=== PATIENT | female | born 1940 | race Caucasian/White ===

== ENCOUNTER 2020-07-25 14:52 | Inpatient (IN) ==
[2020-07-25] MEDS ORDERED: DEXTROSE 50% 25 GM/50 ML VIAL IV PRN (18:16)
[2020-07-25] MEDS ORDERED: GLUCAGON 1 MG VIAL IM PRN (18:16)
[2020-07-25] MEDS ORDERED: hydrALAZINE 20 MG/1 ML VIAL IV PRN (18:58)
[2020-07-25 19:02] LABS: Basophils % 0.1 % (0.0-0.8); Hematocrit 34.9 VOL% (35.7-47.0); Hemoglobin 10.9 GM/DL (12.0-16.0); Immature Granulocytes % 0.4 %; Immature Granulocytes Absolute 0.05 #; Lymphocytes # 1.1 10*3/uL (1.4-4.0); Lymphocytes % 8.6 % (21.3-54.2); Mean Corpuscular HGB Conc 31.2 GM/DL (32-36); Mean Corpuscular Volume 79.5 FL (87-102); Mean Platelet Volume 9.6 FL (9.6-12.0); Monocytes % 7.5 % (1.7-12.7); Neutrophils % 83.4 % (38.7-73.9); Platelet Count 445 T/CUMM (130-400); Red Blood Count 4.39 MC/CUMM (3.8-5.5); Red Cell Distribution Width 18.5 % (9.3-17.3)
[2020-07-25 19:25] LABS: Albumin 3.2 G/DL (3.4-5.0); Bilirubin,Total 0.4 MG/DL (0.2-1.0); Calcium 8.1 MG/DL (8.5-10.1); Osmolality,Calculated 283.1 MOS/KG (273-304); Potassium 3.6 MMOL/L (3.5-5.1)
[2020-07-25] MEDS ORDERED: ENOXAPARIN 40 MG/0.4 ML SYRINGE SUBCUT SCH (19:30)
[2020-07-25] MEDS: HEPARIN 5,000 UNIT/1 ML VIAL SUBCUT SCH (23:05)
[2020-07-25] MEDS: SODIUM CHLORIDE 0.9% 1,000 ML IV SCH (23:09)
[2020-07-26 05:26] LABS: Basophils % 0.1 % (0.0-0.8); Eosinophils % 0.1 % (0.00-10.9); Hematocrit 31.5 VOL% (35.7-47.0); Hemoglobin 9.7 GM/DL (12.0-16.0); Immature Granulocytes % 0.4 %; Immature Granulocytes Absolute 0.03 #; Lymphocytes # 1.1 10*3/uL (1.4-4.0); Lymphocytes % 14.9 % (21.3-54.2); Mean Corpuscular HGB Conc 30.8 GM/DL (32-36); Mean Corpuscular Volume 80.2 FL (87-102); Mean Platelet Volume 9.3 FL (9.6-12.0); Monocytes % 9.6 % (1.7-12.7); Neutrophils % 74.9 % (38.7-73.9); Platelet Count 439 T/CUMM (130-400); Red Blood Count 3.93 MC/CUMM (3.8-5.5); Red Cell Distribution Width 18.4 % (9.3-17.3); White Blood Count 7.5 T/CUMM (4-12)
[2020-07-26 05:55] LABS: Calcium 7.8 MG/DL (8.5-10.1); Osmolality,Calculated 291.4 MOS/KG (273-304); Potassium 2.9 MMOL/L (3.5-5.1)
[2020-07-26] MEDS: SODIUM CHLORIDE 0.9% 1,000 ML IV SCH (06:16)
[2020-07-26] MEDS ORDERED: DEXT 5% NACL 0.45% KCL 20 MEQ 20 MEQ/1,000 ML BAG IV SCH (09:30)
[2020-07-26] MEDS ORDERED: MORPHINE 4 MG/1 ML VIAL IV PRN ×2 (11:55)
[2020-07-26] MEDS ORDERED: TUBERCULIN SKIN TEST 0.1 ML SYRINGE INTRADERM ONE (12:30)
[2020-07-26] MEDS: HEPARIN 5,000 UNIT/1 ML VIAL SUBCUT SCH ×2 (14:26→21:13)
[2020-07-26] MEDS: POTASSIUM CHLORIDE RIDER 10 MEQ/100 ML PREMIX IV PRN ×4 (14:27→22:05)
[2020-07-26] MEDS: DEXT 5% NACL 0.45% KCL 20 MEQ 20 MEQ/1,000 ML BAG IV SCH (15:50)
[2020-07-26] MEDS: METOPROLOL TARTRATE 100 MG TABLET PO SCH (21:13)
[2020-07-26] MEDS: MECLIZINE 25 MG TABLET PO SCH (21:13)
[2020-07-27] MEDS: DEXT 5% NACL 0.45% KCL 20 MEQ 20 MEQ/1,000 ML BAG IV SCH ×3 (00:09→18:18)
[2020-07-27 05:15] LABS: Basophils % 0.4 % (0.0-0.8); Eosinophils # 0.1 10*3/uL (0.0-0.87); Eosinophils % 1.4 % (0.00-10.9); Hematocrit 30.8 VOL% (35.7-47.0); Hemoglobin 9.4 GM/DL (12.0-16.0); Immature Granulocytes % 0.2 %; Immature Granulocytes Absolute 0.01 #; Lymphocytes # 1.1 10*3/uL (1.4-4.0); Lymphocytes % 21.6 % (21.3-54.2); Mean Corpuscular HGB Conc 30.5 GM/DL (32-36); Mean Corpuscular Volume 81.5 FL (87-102); Mean Platelet Volume 9.2 FL (9.6-12.0); Monocytes % 11.9 % (1.7-12.7); Neutrophils % 64.5 % (38.7-73.9); Platelet Count 376 T/CUMM (130-400); Red Blood Count 3.78 MC/CUMM (3.8-5.5); Red Cell Distribution Width 18.7 % (9.3-17.3)
[2020-07-27 05:41] LABS: Calcium 8.1 MG/DL (8.5-10.1); Potassium 3.5 MMOL/L (3.5-5.1)
[2020-07-27 05:44] LABS: Calcium 8.2 MG/DL (8.5-10.1); Osmolality,Calculated 293.7 MOS/KG (273-304); Potassium 3.8 MMOL/L (3.5-5.1)
[2020-07-27] MEDS: LEVOTHYROXINE 75 MCG TABLET PO SCH (06:00)
[2020-07-27] MEDS: MECLIZINE 25 MG TABLET PO SCH ×2 (09:45→20:36)
[2020-07-27] MEDS: HEPARIN 5,000 UNIT/1 ML VIAL SUBCUT SCH ×2 (09:45→20:37)
[2020-07-27] MEDS: FLUCONAZOLE 40 MG/ML 35 ML/BOTTLE PO SCH ×2 (09:45→14:07)
[2020-07-27] MEDS: METOPROLOL TARTRATE 100 MG TABLET PO SCH ×2 (10:16→20:37)
[2020-07-27] MEDS: NYSTATIN POWDER 15 GM BOTTLE TOP SCH ×3 (14:08→20:37)
[2020-07-27] MEDS: DOCUSATE SODIUM 100 MG CAPSULE PO SCH ×2 (15:56→20:36)
[2020-07-27] MEDS: LACTULOSE 20 GM/30 ML UDCUP PO SCH ×2 (15:56→20:36)
[2020-07-27] MEDS: METOCLOPRAMIDE 10 MG/2 ML VIAL IV SCH ×2 (18:18→23:30)
[2020-07-27] MEDS: traZODone 50 MG TABLET PO SCH (20:36)
[2020-07-27] MEDS: ONDANSETRON 4 MG/2 ML VIAL IV PRN (20:37)
[2020-07-27] MEDS: TAMSULOSIN 0.4 MG CAPSULE PO SCH (20:37)
[2020-07-27] MEDS: POLYETHYLENE GLYCOL POWDER 17 GM PACK PO SCH (20:37)
[2020-07-28] MEDS: DEXT 5% NACL 0.45% KCL 20 MEQ 20 MEQ/1,000 ML BAG IV SCH ×3 (01:40→18:06)
[2020-07-28 05:00] LABS: Basophils % 0.3 % (0.0-0.8); Eosinophils # 0.1 10*3/uL (0.0-0.87); Eosinophils % 1.1 % (0.00-10.9); Hematocrit 33.8 VOL% (35.7-47.0); Hemoglobin 10.2 GM/DL (12.0-16.0); Immature Granulocytes % 0.4 %; Immature Granulocytes Absolute 0.04 #; Lymphocytes # 2.6 10*3/uL (1.4-4.0); Lymphocytes % 27.3 % (21.3-54.2); Mean Corpuscular HGB Conc 30.2 GM/DL (32-36); Mean Corpuscular Volume 81.8 FL (87-102); Mean Platelet Volume 9.4 FL (9.6-12.0); Monocytes % 9.4 % (1.7-12.7); Neutrophils % 61.5 % (38.7-73.9); Platelet Count 449 T/CUMM (130-400); Red Blood Count 4.13 MC/CUMM (3.8-5.5); Red Cell Distribution Width 19.1 % (9.3-17.3); White Blood Count 9.5 T/CUMM (4-12)
[2020-07-28 05:08] LABS: Calcium 9.1 MG/DL (8.5-10.1); Osmolality,Calculated 285.7 MOS/KG (273-304); Potassium 3.9 MMOL/L (3.5-5.1)
[2020-07-28] MEDS: LEVOTHYROXINE 75 MCG TABLET PO SCH (05:44)
[2020-07-28] MEDS: METOCLOPRAMIDE 10 MG/2 ML VIAL IV SCH ×3 (05:51→18:06)
[2020-07-28] MEDS ORDERED: CHOLECALCIFEROL 1,000 UNIT TABLET PO SCH (09:00)
[2020-07-28] MEDS: LINACLOTIDE 145 MCG CAPSULE PO SCH (10:31)
[2020-07-28] MEDS: MECLIZINE 25 MG TABLET PO SCH ×2 (10:32→21:10)
[2020-07-28] MEDS: NYSTATIN POWDER 15 GM BOTTLE TOP SCH ×3 (10:32→21:11)
[2020-07-28] MEDS: LACTULOSE 20 GM/30 ML UDCUP PO SCH ×2 (10:32→21:10)
[2020-07-28] MEDS: DOCUSATE SODIUM 100 MG CAPSULE PO SCH ×2 (10:32→21:10)
[2020-07-28] MEDS: FLUCONAZOLE 40 MG/ML 35 ML/BOTTLE PO SCH (10:32)
[2020-07-28] MEDS: METOPROLOL TARTRATE 100 MG TABLET PO SCH ×2 (10:32→21:11)
[2020-07-28] MEDS: ONDANSETRON 4 MG/2 ML VIAL IV PRN (10:32)
[2020-07-28] MEDS: POLYETHYLENE GLYCOL POWDER 17 GM PACK PO SCH ×2 (10:32→21:11)
[2020-07-28] MEDS: HEPARIN 5,000 UNIT/1 ML VIAL SUBCUT SCH ×2 (10:33→21:05)
[2020-07-28] MEDS: traZODone 50 MG TABLET PO SCH (21:10)
[2020-07-28] MEDS: TAMSULOSIN 0.4 MG CAPSULE PO SCH (21:11)
[2020-07-29] MEDS: METOCLOPRAMIDE 10 MG/2 ML VIAL IV SCH ×3 (00:04→16:44)
[2020-07-29] MEDS: DEXT 5% NACL 0.45% KCL 20 MEQ 20 MEQ/1,000 ML BAG IV SCH ×4 (02:13→22:32)
[2020-07-29 05:41] LABS: Basophils % 0.3 % (0.0-0.8); Eosinophils # 0.1 10*3/uL (0.0-0.87); Eosinophils % 1.3 % (0.00-10.9); Hematocrit 32.1 VOL% (35.7-47.0); Hemoglobin 9.5 GM/DL (12.0-16.0); Immature Granulocytes % 0.4 %; Immature Granulocytes Absolute 0.03 #; Lymphocytes # 1.8 10*3/uL (1.4-4.0); Mean Corpuscular HGB Conc 29.6 GM/DL (32-36); Mean Corpuscular Volume 84.7 FL (87-102); Mean Platelet Volume 9.3 FL (9.6-12.0); Monocytes % 9.9 % (1.7-12.7); Neutrophils % 66.1 % (38.7-73.9); Platelet Count 331 T/CUMM (130-400); Red Blood Count 3.79 MC/CUMM (3.8-5.5); Red Cell Distribution Width 19.3 % (9.3-17.3); White Blood Count 7.9 T/CUMM (4-12)
[2020-07-29] MEDS: LEVOTHYROXINE 75 MCG TABLET PO SCH (05:59)
[2020-07-29 06:00] LABS: Calcium 8.6 MG/DL (8.5-10.1); Osmolality,Calculated 281.5 MOS/KG (273-304); Potassium 4.6 MMOL/L (3.5-5.1)
[2020-07-29] MEDS ORDERED: MAGNESIUM SULF RIDER 4 GM/100 ML PREMIX IV PRN (07:41)
[2020-07-29] MEDS ORDERED: MAGNESIUM SULF RIDER 2 GM/50 ML PREMIX IV PRN (07:41)
[2020-07-29] MEDS: NYSTATIN POWDER 15 GM BOTTLE TOP SCH ×3 (08:30→22:33)
[2020-07-29] MEDS: LACTULOSE 20 GM/30 ML UDCUP PO SCH ×2 (10:21→21:32)
[2020-07-29] MEDS: METOPROLOL TARTRATE 100 MG TABLET PO SCH ×2 (10:22→21:32)
[2020-07-29] MEDS: POLYETHYLENE GLYCOL POWDER 17 GM PACK PO SCH ×2 (10:22→21:32)
[2020-07-29] MEDS: HEPARIN 5,000 UNIT/1 ML VIAL SUBCUT SCH ×2 (12:00→22:33)
[2020-07-29] MEDS: LINACLOTIDE 145 MCG CAPSULE PO SCH (16:16)
[2020-07-29] MEDS: MECLIZINE 25 MG TABLET PO SCH ×2 (16:16→21:32)
[2020-07-29] MEDS: DOCUSATE SODIUM 100 MG CAPSULE PO SCH ×2 (16:17→21:32)
[2020-07-29] MEDS: FLUCONAZOLE 40 MG/ML 35 ML/BOTTLE PO SCH (18:24)
[2020-07-29] MEDS: traZODone 50 MG TABLET PO SCH (21:32)
[2020-07-29] MEDS: TAMSULOSIN 0.4 MG CAPSULE PO SCH (21:33)
[2020-07-30] MEDS: METOCLOPRAMIDE 10 MG/2 ML VIAL IV SCH ×3 (00:21→17:10)
[2020-07-30 07:10] LABS: Calcium 8.9 MG/DL (8.5-10.1); Osmolality,Calculated 279.4 MOS/KG (273-304); Potassium 4.6 MMOL/L (3.5-5.1)
[2020-07-30 07:14] LABS: Basophils % 0.2 % (0.0-0.8); Eosinophils # 0.1 10*3/uL (0.0-0.87); Eosinophils % 1.1 % (0.00-10.9); Hematocrit 34.8 VOL% (35.7-47.0); Immature Granulocytes % 0.5 %; Immature Granulocytes Absolute 0.04 #; Lymphocytes # 1.6 10*3/uL (1.4-4.0); Lymphocytes % 18.7 % (21.3-54.2); Mean Corpuscular HGB Conc 28.2 GM/DL (32-36); Mean Corpuscular Volume 85.9 FL (87-102); Mean Platelet Volume 9.8 FL (9.6-12.0); Monocytes % 9.7 % (1.7-12.7); Neutrophils % 69.8 % (38.7-73.9); Platelet Count 318 T/CUMM (130-400); Red Blood Count 4.05 MC/CUMM (3.8-5.5); Red Cell Distribution Width 19.5 % (9.3-17.3); White Blood Count 8.8 T/CUMM (4-12)
[2020-07-30 07:15] LABS: Hemoglobin 9.8 GM/DL (12.0-16.0)
[2020-07-30] MEDS: LEVOTHYROXINE 75 MCG TABLET PO SCH (07:31)
[2020-07-30] MEDS: DEXT 5% NACL 0.45% KCL 20 MEQ 20 MEQ/1,000 ML BAG IV SCH ×2 (10:15→16:28)
[2020-07-30] MEDS: MECLIZINE 25 MG TABLET PO SCH ×2 (10:16→20:57)
[2020-07-30] MEDS: ONDANSETRON 4 MG/2 ML VIAL IV PRN (10:16)
[2020-07-30] MEDS: DOCUSATE SODIUM 100 MG CAPSULE PO SCH ×2 (10:16→21:04)
[2020-07-30] MEDS: METOPROLOL TARTRATE 100 MG TABLET PO SCH ×2 (10:16→20:57)
[2020-07-30] MEDS: HEPARIN 5,000 UNIT/1 ML VIAL SUBCUT SCH ×2 (10:16→20:57)
[2020-07-30] MEDS: NYSTATIN POWDER 15 GM BOTTLE TOP SCH ×3 (10:22→21:04)
[2020-07-30] MEDS: LINACLOTIDE 145 MCG CAPSULE PO SCH (10:22)
[2020-07-30] MEDS: LACTULOSE 20 GM/30 ML UDCUP PO SCH ×2 (10:23→21:04)
[2020-07-30] MEDS: POLYETHYLENE GLYCOL POWDER 17 GM PACK PO SCH ×2 (10:23→21:04)
[2020-07-30] MEDS ORDERED: OMEPRAZOLE ODT 20 MG TABLET PO ONE (20:23)
[2020-07-30] MEDS: TAMSULOSIN 0.4 MG CAPSULE PO SCH (20:57)
[2020-07-30] MEDS: traZODone 50 MG TABLET PO SCH (20:57)
[2020-07-31] MEDS: METOCLOPRAMIDE 10 MG/2 ML VIAL IV SCH ×3 (00:06→16:20)
[2020-07-31] MEDS: DEXT 5% NACL 0.45% KCL 20 MEQ 20 MEQ/1,000 ML BAG IV SCH ×4 (01:43→20:43)
[2020-07-31] MEDS: LEVOTHYROXINE 75 MCG TABLET PO SCH (05:46)
[2020-07-31 07:18] LABS: Basophils % 0.5 % (0.0-0.8); Eosinophils # 0.2 10*3/uL (0.0-0.87); Hemoglobin 8.2 GM/DL (12.0-16.0); Immature Granulocytes % 0.5 %; Immature Granulocytes Absolute 0.04 #; Lymphocytes # 1.7 10*3/uL (1.4-4.0); Lymphocytes % 22.9 % (21.3-54.2); Mean Corpuscular HGB Conc 29.3 GM/DL (32-36); Mean Corpuscular Volume 84.6 FL (87-102); Mean Platelet Volume 9.8 FL (9.6-12.0); Monocytes % 8.2 % (1.7-12.7); Neutrophils % 65.9 % (38.7-73.9); Platelet Count 280 T/CUMM (130-400); Red Blood Count 3.31 MC/CUMM (3.8-5.5); Red Cell Distribution Width 19.1 % (9.3-17.3); White Blood Count 7.4 T/CUMM (4-12)
[2020-07-31 07:33] LABS: Calcium 8.5 MG/DL (8.5-10.1); Osmolality,Calculated 278.4 MOS/KG (273-304); Potassium 4.4 MMOL/L (3.5-5.1)
[2020-07-31] MEDS: DOCUSATE SODIUM 100 MG CAPSULE PO SCH ×2 (09:19→21:46)
[2020-07-31] MEDS: METOPROLOL TARTRATE 100 MG TABLET PO SCH ×2 (09:19→20:38)
[2020-07-31] MEDS: LINACLOTIDE 145 MCG CAPSULE PO SCH (09:19)
[2020-07-31] MEDS: MECLIZINE 25 MG TABLET PO SCH ×2 (09:19→20:37)
[2020-07-31] MEDS: LACTULOSE 20 GM/30 ML UDCUP PO SCH ×2 (09:20→21:46)
[2020-07-31] MEDS: HEPARIN 5,000 UNIT/1 ML VIAL SUBCUT SCH ×2 (09:21→20:40)
[2020-07-31] MEDS: NYSTATIN POWDER 15 GM BOTTLE TOP SCH ×3 (09:22→20:41)
[2020-07-31] MEDS: POLYETHYLENE GLYCOL POWDER 17 GM PACK PO SCH ×2 (09:24→21:46)
[2020-07-31] MEDS: OMEPRAZOLE ODT 20 MG TABLET PO SCH (13:04)
[2020-07-31] MEDS: traZODone 50 MG TABLET PO SCH (20:37)
[2020-07-31] MEDS: TAMSULOSIN 0.4 MG CAPSULE PO SCH (20:37)
[2020-08-01] MEDS ORDERED: ACETAMINOPHEN 325 MG TABLET PO PRN (00:52)
[2020-08-01] MEDS: METOCLOPRAMIDE 10 MG/2 ML VIAL IV SCH ×2 (01:26→09:21)
[2020-08-01] MEDS: LEVOTHYROXINE 75 MCG TABLET PO SCH (05:43)
[2020-08-01] MEDS: DEXT 5% NACL 0.45% KCL 20 MEQ 20 MEQ/1,000 ML BAG IV SCH (05:43)
[2020-08-01] MEDS: MECLIZINE 25 MG TABLET PO SCH (09:18)
[2020-08-01] MEDS: METOPROLOL TARTRATE 100 MG TABLET PO SCH (09:19)
[2020-08-01] MEDS: LINACLOTIDE 145 MCG CAPSULE PO SCH (09:19)
[2020-08-01] MEDS: HEPARIN 5,000 UNIT/1 ML VIAL SUBCUT SCH (09:20)
[2020-08-01] MEDS: LACTULOSE 20 GM/30 ML UDCUP PO SCH (09:28)
[2020-08-01] MEDS: NYSTATIN POWDER 15 GM BOTTLE TOP SCH (09:29)
[2020-08-01] MEDS: DOCUSATE SODIUM 100 MG CAPSULE PO SCH (09:29)
[2020-08-01] MEDS: POLYETHYLENE GLYCOL POWDER 17 GM PACK PO SCH (09:29)
[2020-08-01] MEDS: OMEPRAZOLE ODT 20 MG TABLET PO SCH (09:29)
[2020-08-01 11:22] VITALS: BP 126/52
== END 2020-08-01 16:29 | DRG 389 ==
LOC: SUATTDRO 17:09 → N.3E 17:09
PROVIDERS: ADMIT Internal Medicine; ATTEND Internal Medicine